=== PATIENT | female | born 1950 ===

== ENCOUNTER 2018-06-30 04:48 | Emergency (ER) | payer MEDICARE, OTHER ==
[2018-06-30 05:39] LABS: Urine Appearance Clear; Urine Blood 2+ (Negative); Urine Color Yellow; Urine Ketones Negative (Negative); Urine Protein Negative (Negative); Urine Red Blood Cell 2+(6-10/hpf) (Absent); Urine Specific Gravity 1.008 (1.010-1.030); Urine Urobilinogen Negative (Negative); Urine White Blood Cell 3+(>20/hpf) (Absent)
--- NOTE | 2018-06-30 06:02 | ED ---
GI/ HPI - HPI Summary HPI Summary: Pt presents w/ what she believes is her 3rd UTI in 5 weeks. Sx include increased frequency and burning w/ urination which started last night. Denies fever, chills, ab pain, N/V/D, flank pain. Does not recall meds she was rx'd for previous UTI's when seen at [facility] but possibly macrobid which worked well. H/o UTI w/ pyelo. She's in a new relationship and very sexually active - does not use protection - both she and partner were tested are negative. Last active yesterday morning. Denies new vaginal d/c. - vaginal delivery - h/o HSV - takes daily valtrex and no outbreaks since. - History of Current Complaint Chief Complaint: EDUrogenitalProblems Time Seen by Provider: 06/30/18 05:38 Stated Complaint: BURNING WHILE URINATING Hx Obtained From: Patient Pain Intensity: 7 - Allergy/Home Medications Allergies/Adverse Reactions: Allergies Allergy/AdvReac Type Severity Reaction Status Date / Time MS Cefdinir [Cefdinir] Allergy Mild Rash And Verified 06/30/18 05:06 Itching MS Penicillin G Allergy Hives Verified 06/30/18 05:06 [Penicillin G] PMH/Surg Hx/FS Hx/Imm Hx Previously Healthy: Yes Endocrine/Hematology History: Denies: Hx Diabetes, Hx Thyroid Disease Cardiovascular History: Denies: Hx Hypertension, Hx Pacemaker/ICD Respiratory History: Denies: Hx Asthma, Hx Chronic Obstructive Pulmonary Disease (COPD) GI History: Denies: Hx Ulcer History: Denies: Hx Renal Disease Sensory History: Denies: Hx Hearing Aid Neurological History: Reports: Hx Headaches - nortriptyline, zonisamide Psychiatric History: Denies: Hx Panic Disorder - Surgical History Surgery Procedure, Year, and Place: TONSILECTOMY. Rt THUMB - SEVERAL TIMES FROM SMASHING IN CAR DOOR. CONE BIOPSY -BENIGN. 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 Alcohol Use: Occasionally Hx Substance Use: No Substance Use Type: Reports: None Hx Tobacco Use: Yes Smoking Status (MU): Former Smoker Type: Cigarettes Have You Smoked in the Last Year: No Review of Systems Constitutional: Negative Negative: Chest Pain Negative: Shortness Of Breath Gastrointestinal: Negative Positive: see HPI Psychological: Normal All Other Systems Reviewed And Are Negative: Yes Physical Exam Triage Information Reviewed: Yes Vital Signs On Initial Exam: Initial Vitals Temp Pulse Resp BP Pulse Ox 98.3 F 100 18 125/67 100 06/30/18 04:51 06/30/18 04:51 06/30/18 04:51 06/30/18 04:51 06/30/18 04:51 Vital Signs Reviewed: Yes Appearance: Positive: Well-Appearing, No Pain Distress, Well-Nourished Skin: Positive: Warm, Skin Color Reflects Adequate Perfusion, Dry Head/Face: Positive: Normal Head/Face Inspection Eyes: Positive: EOMI ENT: Positive: Hearing grossly normal, Pharynx normal - mucosa moist Respiratory/Lung Sounds: Positive: Clear to Auscultation, Breath Sounds Present Cardiovascular: Positive: Normal, RRR Abdomen Description: Positive: Nontender, Soft. Negative: CVA Tenderness (R), CVA Tenderness (L), Distended, Guarding Pelvic Exam: Positive: External Exam Normal, Speculum Exam Normal, Bimanual Exam Normal, No Cerv. Motion Tender, No Masses. Negative: Active Bleeding, Cervicitis Musculoskeletal: Positive: Normal, Strength/ROM Intact Neurological: Positive: Normal, Sensory/Motor Intact, Alert, Oriented to Person Place, Time, CN Intact II-III Psychiatric: Positive: Normal Diagnostics - Vital Signs Vital Signs Temp Pulse Resp BP Pulse Ox 06/30/18 04:51 98.3 F 100 18 125/67 100 - Laboratory Lab Results: Lab Results 06/30/18 Range/Units 05:00 Urine Color Yellow Urine Appearance Clear Urine pH 6.0 (5-9) Ur Specific [place] 1.008 L (1.010-1.030) Urine Protein Negative (Negative) Urine Ketones Negative (Negative) Urine Blood 2+ A (Negative) Urine Nitrate Negative (Negative) Urine Bilirubin Negative (Negative) Urine Urobilinogen Negative (Negative) Ur Leukocyte Esterase 3+ A (Negative) Urine WBC (Auto) 3+(>20/hpf) A (Absent) Urine RBC (Auto) 2+(6-10/hpf) A (Absent) Ur Squamous Epith Cells Present A (Absent) Urine Bacteria Absent (Absent) Urine Glucose Negative (Negative) Lab Statement: Any lab studies that have been ordered have been reviewed, and results considered in the medical decision making process. GIGU Course/Dx - Course Course Of Treatment: Suspect UTI given hx and relief w/ anbx - discussed possibility of vaginal infections, specificially BV and pt agreed to testing today. Will f/u w/ PCP this week and review results there. We will also call if she has a positive and tx as needed. Education given re: intercourse and infections. Pt aware and agrees w/ plan. - Diagnoses Provider Diagnoses: UTI (urinary tract infection) Discharge - Sign-Out/Discharge Documenting (check all that apply): Patient Departure - Discharge Plan Condition: Stable Disposition: HOME Prescriptions: Nitrofurantoin Monohyd/M-Cryst [Macrobid 100 mg Capsule] 100 mg PO BID #13 cap Phenazopyridine 200 mg (NF) [Pyridium 200 MG tab *] 200 mg PO TID PRN #6 tab PRN Reason: Pain Patient Education Materials: Urinary Tract Infection in Women (ED) Referrals: Gracie Swan MD [Primary Care Provider] - Additional Instructions: Complete medications as directed Follow-up with Dr. Oropeza as scheduled Your cultures will return in the next 2 days - if you have abnormal findings, you will receive a call and education/treatment will be provided *If you feel worse in the meantime, return to the ED - Billing Disposition and Condition Condition: STABLE Disposition: Home
[2018-06-30] MEDS ORDERED: Phenazopyridine TAB* 100 MG PO ONE (06:24)
[2018-06-30] MEDS ORDERED: Nitrofurantoin Macrocrystals* 100 MG CAP PO ONE (06:24)
[2018-06-30 06:45] VITALS: BP 0/0
== END 2018-06-30 06:43 | disposition home or self-care (01) ==
LOC: ED 04:48
DX: N39.0 Urinary tract infection, site not specified (principal); Z88.0 Allergy status to penicillin; Z87.891 Personal history of nicotine dependence; Z87.440 Personal history of urinary (tract) infections
CPT/HCPCS: 81003; 81015; 87086; 99282; A9270-GY